=== PATIENT | male | born 1965 | race Caucasian/White ===

== ENCOUNTER 2017-12-06 20:05 | Emergency (ER) | payer MEDICAID ==
[~2017-12-06] VITALS: Ht 167.6 cm; Wt 70.8 kg
[2017-12-06 20:08] VITALS: BP 129/83; Ht 167.6 cm; Wt 70.8 kg
== END 2017-12-06 23:24 | disposition home or self-care (01) ==
LOC: ED 20:05
PROC: 3E0234Z Introduction of Serum, Toxoid and Vaccine into Muscle, Percutaneous Approach (ICD-10-PCS; principal; 2017-12-06)
DX: S61.217A Laceration without foreign body of left little finger without damage to nail, initial encounter (principal); W45.0XXA Nail entering through skin, initial encounter; Y92.099 Unspecified place in other non-institutional residence as the place of occurrence of the external cause
CPT/HCPCS: 90715